=== PATIENT | female | born 1950 | race Caucasian/White ===

== ENCOUNTER 2016-10-05 06:36 | Day surgery (SDC) | payer MEDICARE ==
[2016-10-05] MEDS ORDERED: CEFAZOLIN SODIUM 2 GRAM DUPLEX 50 ML IV PRN (07:30)
[2016-10-05] MEDS ORDERED: IV START KIT ONE (07:31)
[2016-10-05] MEDS ORDERED: LACTATED RINGERS 0 ML ONE (07:31)
[2016-10-05] MEDS ORDERED: CEFAZOLIN SODIUM 2 GRAM PREMIX 100 ML IV ONE (07:31)
[2016-10-05] MEDS ORDERED: SODIUM CHLORIDE 0.9% 1,000 ML ONE ×2 (07:33→12:05)
[2016-10-05] MEDS ORDERED: PROPOFOL 20 ML IV ONE (08:04)
[2016-10-05] MEDS ORDERED: FENTANYL 100 MCG/2 ML VIAL ONE (08:07)
[2016-10-05] MEDS ORDERED: MIDAZOLAM HCL 1 MG/ML 2ML VIAL ONE (08:07)
[2016-10-05] MEDS ORDERED: IOPAMIDOL 300 (61%) 30 ML SDV ONE ×2 (08:53→13:00)
[2016-10-05] MEDS ORDERED: ROCURONIUM BROMIDE 10 MG/ML DOSE IV ONE (09:30)
[2016-10-05] MEDS ORDERED: ONDANSETRON 4 MG/2ML 2 ML VIAL ONE (10:06)
[2016-10-05 11:26] LABS: TROPONIN I < 0.01 ng/ml (0.0-0.06)
[2016-10-05 11:30] LABS: CKMB ISOENZYME 1.2 ng/ml (0.6-6.3)
--- NOTE | 2016-10-05 16:07 | CONS ---
JERONIMOCELIA GORDON JIL [id number] HOSPITALIST CONSULATION DATE OF CONSULTATION: October 05, 2016 REASON FOR CONSULTATION: Is for some preoperative electrocardiogram changes noted on telemetry prior to a transurethral bladder tumor resection. PHYSICIAN REQUESTING CONSULTATION: Pedro Durán M.D. SUMMARY OF ADMISSION AND HOSPITAL COURSE: Patient is a 66-year-old female with a history of neoplasm of the bladder who presented for same day surgery to have the bladder tumor resected. Preoperatively her electrocardiogram showed normal sinus rhythm with normal QRS intervals, however, patient received some sedation in preparation for general anesthesia and developed an axis deviation to the right as well as some widening of her QRS interval and some T wave inversions in the inferior leads. After the medication wore off, she had no complaints, no chest pain, no shortness of breath. Her cardiac enzymes were negative, and I was consulted. 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 However, ongoing concerns about the electrocardiogram changes were voiced, and it was felt better to delay the procedure pending preoperative cardiac clearance by cardiology. Her preoperative laboratory studies included a normal CBC and normal metabolic panel with a creatinine of 0.7. She had some mildly elevated transaminase levels of uncertain significance with AST of 63 and ALT of 69. She had a total CPK elevation of 419 but CK-MB was 1.2, and troponin I was less than 0.01. Her electrocardiogram reverted to normal with a period of observation, and she is felt to be medically stable for discharge. REVIEW OF SYSTEMS: Patient's review of systems is negative for any recent fever, chills, or upper respiratory symptoms. She has had no cough, chest pain, shortness of breath or wheezing. She denies any complaints of chest pain, palpitations, or lower extremity edema. No gastrointestinal complaints and no arthralgias. PAST MEDICAL HISTORY: Significant for: 1. Adult onset diabetes. 2. Hypercholesterolemia. 3. History of lung cancer currently in remission. 4. Bladder tumor under evaluation today. PAST SURGICAL HISTORY: 1. Several dilation and curettages in the past. 2. She has had right knee arthroscopy in the . 3. Partial hysterectomy in the . 4. Chest tumor biopsy in 1989. 5. Lumbar spine surgery in 1987. 6. Mammoplasty breast reduction bilaterally in 1995. 7. Left breast biopsy, benign, in 2000. 8. Stenosing tenosynovitis in the right thumb and long finger in 2003. 9. Laparoscopic cholecystectomy in 2013. ALLERGIES: INTOLERANCE TO PERCODAN. CURRENT MEDICATIONS: Include: 1. Levothyroxine 112 mcg one daily. 2. Metformin 1000 mg twice daily. 3. Pravastatin 40 mg once daily. 4. Omeprazole 20 mg twice daily. 5. Brio inhaler 100/25 mcg one inhalation daily. 6. Glimepiride 2 mg daily. 7. Losartan 25 mg daily. 8. Nasacort nasal spray 55 mcg per spray one spray in each nostril daily. 9. Bio[employer] supplement two tablets twice a day. 10. She uses [id number] Nasacort as well as needed for allergies. FAMILY HISTORY: Is unknown. She is adopted. SOCIAL HISTORY: Is significant for a 23 pack-year history of smoking. She quit in 1989. She is . She has two adopted children. She rarely drinks alcohol. No illicit drug use history. Primary care provider is Karishma Vazquez in [place]. ASSESSMENT/PLAN: Patient has perioperative electrocardiogram changes with concerns for underlying cardiac disease. Plan is to cancel her procedure today and refer her for further cardiac evaluation at the [facility] at [facility]. Patient will be notified of the date and time of the appointment once the referral has been accomplished. cc: Thiago Vazquez. Pedro Durán M.D.
== END 2016-10-05 13:00 | disposition home or self-care (01) ==
LOC: SDC 06:36
PROVIDERS: ATTEND Urology
DX: D49.4 Neoplasm of unspecified behavior of bladder (principal); Z53.09 Procedure and treatment not carried out because of other contraindication; R94.31 Abnormal electrocardiogram [ECG] [EKG]; E11.9 Type 2 diabetes mellitus without complications; E78.00 Pure hypercholesterolemia, unspecified; Z85.118 Personal history of other malignant neoplasm of bronchus and lung; Z79.899 Other long term (current) drug therapy; Z79.84 Long term (current) use of oral hypoglycemic drugs; Z87.891 Personal history of nicotine dependence

== ENCOUNTER 2016-11-09 07:21 | Day surgery (SDC) | payer MEDICARE ==
[~2016-11-09 07:21] MED LIST: CEFAZOLIN SODIUM 2 GRAM PREMIX 100 ML IV ONE; IV START KIT ONE; SODIUM CHLORIDE 0.9% 1,000 ML ONE
[2016-11-09] MEDS ORDERED: CEFAZOLIN SODIUM 2 GRAM PREMIX 100 ML IV PRN (07:30)
[2016-11-09] MEDS ORDERED: IOPAMIDOL 300 (61%) 30 ML SDV ONE (07:57)
[2016-11-09] MEDS ORDERED: FENTANYL 250 MCG/5 ML AMP ONE (08:22)
[2016-11-09] MEDS ORDERED: MIDAZOLAM HCL 1 MG/ML 2ML VIAL ONE (08:22)
[2016-11-09] MEDS ORDERED: PROPOFOL 20 ML IV ONE (08:34)
[2016-11-09] MEDS ORDERED: ONDANSETRON 4 MG/2ML 2 ML VIAL ONE (08:34)
[2016-11-09] MEDS ORDERED: OPIUM/BELLADONNA ALKALOIDS 1 EACH SUP PR ONE (08:40)
[2016-11-09] MEDS ORDERED: PROMETHAZINE HCL 25 MG/ML VIAL IM PRN (08:47)
[2016-11-09] MEDS ORDERED: HYDROMORPHONE HCL 1 MG/ML SYRINGE IV PRN (08:47)
[2016-11-09] MEDS ORDERED: NALOXONE HCL 0.4 MG/ML VIAL IV PRN (08:47)
[2016-11-09] MEDS ORDERED: ONDANSETRON 4 MG/2ML 2 ML VIAL IV PRN ×2 (08:47→09:48)
[2016-11-09] MEDS ORDERED: FENTANYL 100 MCG/2 ML VIAL IV PRN (08:47)
[2016-11-09] MEDS ORDERED: ATROPINE SULFATE 0.4 MG/1 ML VIAL IV PRN (08:47)
[2016-11-09] MEDS ORDERED: DIPHENHYDRAMINE HCL 50 MG/1 ML VIAL ONE (08:48)
[2016-11-09] MEDS ORDERED: SODIUM CHLORIDE 0.9% 1,000 ML IV SCH (09:00)
[2016-11-09] MEDS ORDERED: ALBUTEROL SULFATE MDI 60 PUFFS/INHALER IH ONE (09:02)
--- NOTE | 2016-11-09 09:25 | RAD ---
EXAMINATION : BILATERAL RETROGRADE URETEROGRAM HISTORY: Assess collecting system. COMPARISONS: None TECHNIQUE: Under fluoroscopic assistance and ureteroscopy, bilateral retrograde pyelograms were obtained. Fluoroscopy time 34.2 seconds. Number of images: 10 FINDINGS: Submitted images exhibit no evidence of obstructing mass or lesion. No high-grade stricture is appreciated. The proximal calyces appear well delineated and sharp. Very mild blunting of the right calyces are noted. No extravasation is identified. IMPRESSION: Unremarkable bilateral retrograde ureterograms. Please refer to Dr. Durán findings under separate report.
[2016-11-09] MEDS ORDERED: HYDROCODONE/ACETAMINOPHEN 5/325MG TABLET PO PRN (09:48)
[2016-11-09] MEDS ORDERED: MORPHINE SULFATE 2 MG/ML SYRINGE IV PRN (09:48)
[2016-11-09] MEDS ORDERED: MORPHINE SULFATE 4 MG/ML SYRINGE IV PRN (09:53)
[2016-11-09] MEDS ORDERED: MORPHINE SULFATE 10 MG/ML SYRINGE IV PRN (09:54)
--- NOTE | 2016-11-09 12:21 | OP ---
CELIA GARCIA [id number] DATE OF OPERATION: November 09, 2016 SURGEON: Pedro Durán M.D. PLY SPLICER: None. ANESTHESIA: General. PREOPERATIVE DIAGNOSES: Bladder tumor. POSTOPERATIVE DIAGNOSES: Bladder tumor. PROCEDURE: 1. CYSTOSCOPY. 2. BILATERAL RETROGRADE URETEROGRAPHY. 3. TRANSURETHRAL RESECTION OF LARGE BLADDER TUMOR. SPECIMENS: Fragments of bladder tumor from right lateral wall. 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 CT scan coincidentally showed a bladder lesion and cystoscopy confirmed a tumor low on the right lateral wall. Surgery was scheduled for late September of this year but had to be canceled due to sudden electrocardiogram changes. She has subsequently been evaluated by cardiology and cleared for surgery under general anesthesia. FINDINGS: Urethra appears normal. There is some squamous metaplasia of the distal trigone. Ureteral orifices are normally disposed. Retrograde studies on both sides were normal. The bladder wall itself was free of lesions aside from a large ball like lesion mixed papillary and sessile structure on a broad base situated on the low right lateral wall beginning approximately 3 cm from the right ureteral orifice. By the time the resection was completed, the operated base was approximately 6 to 7 cm in size. PROCEDURE: The patient was identified and brought to the operating room where general anesthesia was induced supine, and then she was placed in a dorsal lithotomy position. The genital region was prepped and draped sterilely. Cystoscopy was performed with a 21 Congolese scope using saline as an irrigant. Findings are reported above. Using a cone tip catheter against each ureteral orifice and injecting contrast retrograde with fluoroscopic guidance to obtain ureteral imaging. Findings are reported above. Next, we dilated the urethra with straight sounds up to 30 Congolese and then introduced a 27 Congolese resectoscope sheath with a visual obturator. Using saline as an irrigant and a bipolar loop cautery system, we began resection of the bladder tumor lesion and worked progressively down to its base which was surprisingly broad. Once the entire tumor had been removed, we fulgurated the base and the margin all the way around it taking great care to avoid any injury to the right ureter. Once this was complete, we removed tissue through the resectoscope and then did a final inspection. Finding no bleeding from the tumor site, we removed the resectoscope and passed a 20 Congolese Alicia catheter to gravity drainage with 10 mL of water in its balloon. Three-way saline irrigation was instituted to observe for hematuria. Estimated blood loss was less than 20 mL. No early complications. Patient tolerated the procedure well and was taken in stable condition to the post anesthesia room. cc: Pedro Durán M.D. Lyle Baird PA-C
[2016-11-09] MEDS ORDERED: PHENAZOPYRIDINE HCL 200 MG TABLET PO SCH (15:00)
--- NOTE | 2016-11-11 10:53 | SURGPATH ---
[facility] [address] [place] [id number] Patient Name: CELIA GARCIA MR#: [id number] : 1950 Gender: F Specimen #: [id number] Collected: 11/09/2016 Received: 11/10/2016 Reported: 11/11/2016 Submitting Phys: MARILYN ATKINS [facility] History / Pre-Operative Diagnosis: Bladder cancer Specimen Source / Surgical Procedure Performed: Fragments of bladder tumor near right orifice HIGH PRIORITY DIAGNOSIS. REQUIRES CLINICAL ATTENTION Interpretation: BLADDER, TUMOR NEAR RIGHT ORIFICE, TRANSURETHRAL RESECTION: - NONINVASIVE PAPILLARY UROTHELIAL CARCINOMA, HIGH GRADE Electronically Signed Out Jon Szymanski M.D. Gross Description: The specimen is received in formalin labeled with the patient's name and "fragments of bladder tumor". The specimen consists of a 2.0 x 1.5 x 0.5 cm aggregate of crum-gonzalez soft friable tissue fragments. Submitted in toto in one cassette. TRAVIS Torrez Microscopic Description: Levels reveal multiple fragments of a papillary urothelial carcinoma with fusion of papillary structures, marked variation in epithelial thickness, areas with loss of organization and areas with frequent mitoses. Subepithelial stromal invasion is not seen. Intact muscularis is not included in the submitted fragments. 1: 54026 C67.9
== END 2016-11-09 13:40 | disposition home or self-care (01) ==
LOC: SDC 07:21
PROVIDERS: ATTEND Urology
PROC: 0TBB8ZZ Excision of Bladder, Via Natural or Artificial Opening Endoscopic (ICD-10-PCS; principal; 2016-11-09)
DX: D09.0 Carcinoma in situ of bladder (principal); J44.9 Chronic obstructive pulmonary disease, unspecified; E11.9 Type 2 diabetes mellitus without complications; I10 Essential (primary) hypertension; Z87.891 Personal history of nicotine dependence